=== PATIENT | female | born 2000 | race Caucasian/White ===

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

== ENCOUNTER 2018-05-18 02:16 | Emergency (ER) | payer BC ==
--- NOTE | 2018-05-18 02:49 | RAD ---
EXAM DESCRIPTION: Single view of the chest CLINICAL HISTORY: SOB COMPARISON: None. FINDINGS: Single frontal view of the chest. The cardiomediastinal silhouette has normal size and contour. No consolidation, pneumothorax, or pleural effusion. No displaced rib fractures identified. Leads overlie the chest. Low lung volumes. Upper abdominal soft tissues are unremarkable. IMPRESSION: 1. No acute pulmonary process identified. Electronically signed by: Robin Ozuna 05/18/2018 2:48 AM CDT
--- NOTE | 2018-05-18 03:42 | ED.PDOC ---
History of Present Illness - General Chief Complaint: Respiratory Problem Stated Complaint: shortness of breath Time Seen by Provider: 05/18/18 03:30 Source: patient, Vital Signs reviewed Additional Information: 17 YEAR OLD FEMALE PRESENTS WITH CHEST PAIN PALPITAIONS SHORTNESS OF BREATH DIZZINESS AT NIGHT FOR THE PAST 1 WEEK SHE STARTED TAKING HORMONE PILLS FOR THE 9 MONTH AMENORRHEA SHE HAS NO OTHER RISK FOR THROMBO-EMBOLISM - History of Present Illness Timing/Duration: 1 week Severity: mild Improving Factors: nothing Allergies/Adverse Reactions: Allergies NO KNOWN ALLERGY Allergy (Unverified 04/14/15 19:39) Home Medications: Ambulatory Orders Acetamin W/Cod #3 Tab [Tylenol #3 Tab] 1 ea PO Q4-6H PRN #20 tab 04/14/15 Review of Systems - Review of Systems Constitutional: States: no symptoms reported EENTM: States: no symptoms reported Respiratory: States: no symptoms reported Cardiology: States: no symptoms reported Gastrointestinal/Abdominal: States: no symptoms reported Genitourinary: States: no symptoms reported Musculoskeletal: States: no symptoms reported Skin: States: no symptoms reported Neurological: States: no symptoms reported Endocrine: States: no symptoms reported Hematologic/Lymphatic: States: no symptoms reported Past Medical History (General) - Patient Medical History Hx Asthma: Yes Hx Cardiac Disorders: No Hx Hypertension: No Hx Thyroid Disease: No Hx Diabetes: No Hx Gastroesophageal Reflux: Yes Hx Cancer: No Hx Hepatitis C: No Surgical History: no surgical history - Vaccination History Hx Influenza Vaccination: Yes Hx Pneumococcal Vaccination: Yes - Social History Hx Tobacco Use: No Hx Chewing Tobacco Use: No Hx Alcohol Use: No Hx Substance Use: No Hx Substance Use Treatment: No Hx Depression: No Hx Physical Abuse: No Hx Emotional Abuse: No Hx Suspected Abuse: No - Female History Patient is a Female of Child Bearing Age (10 -59 yrs old): Yes Patient : No Family Medical History - Family History Father Hx Family Diabetes: Yes Physical Exam - Physical Exam General Appearance: Alert, Anxious Eye Exam: bilateral normal Ears, Nose, Throat: hearing grossly normal, normal ENT inspection, normal pharynx, abnormal TM (R) Neck: non-tender, full range of motion, supple Respiratory: chest non-tender, lungs clear, normal breath sounds, no respiratory distress, no accessory muscle use Cardiovascular/Chest: normal peripheral pulses, regular rate, rhythm, no edema, no gallop, no JVD, no murmur Back Exam: normal inspection, no CVA tenderness, no vertebral tenderness Extremity: normal range of motion, non-tender, normal inspection Neurologic: corrections counselor II-XII nml as tested, no motor/sensory deficits, alert, normal mood/affect, oriented x 3 Progress - Results/Orders Results/Orders: Laboratory Tests 05/18/18 05/18/18 05/18/18 02:40 02:40 02:40 WBC 8.0 RBC 4.50 Hgb 13.4 Hct 39.2 MCV 87.1 MCH 29.9 MCHC 34.3 RDW 13.5 Plt Count 267 MPV 8.0 Absolute Neuts (auto) 4.80 Absolute Lymphs (auto) 2.50 Absolute Monos (auto) 0.50 Absolute Eos (auto) 0.10 Absolute Basos (auto) 0.00 Neutrophils % 60.4 Lymphocytes % 31.6 Monocytes % 6.9 Eosinophils % 0.7 L Basophils % 0.4 D-Dimer, Quantitative 0.69 H* Sodium 139 Potassium 3.7 Chloride 105 Carbon Dioxide 23 Anion Gap 14.7 BUN 13 Creatinine 0.73 BUN/Creatinine Ratio 17.8 Random Glucose 111 H Serum Osmolality 278.3 Calcium 9.3 Total Bilirubin 1.2 H AST 23 ALT 32 Alkaline Phosphatase 67 L Serum Total Protein 8.0 Albumin 4.3 Globulin 3.7 H Albumin/Globulin Ratio 1.2 Urine Color Urine Appearance Urine pH Ur Specific [place] Urine Protein Urine Glucose (UA) Urine Ketones Urine Blood Urine Nitrite Urine Bilirubin Urine Urobilinogen Ur Leukocyte Esterase Urine RBC Urine WBC Ur Epithelial Cells Amorphous Sediment Urine Bacteria 05/18/18 03:03 WBC RBC Hgb Hct MCV MCH MCHC RDW Plt Count MPV Absolute Neuts (auto) Absolute Lymphs (auto) Absolute Monos (auto) Absolute Eos (auto) Absolute Basos (auto) Neutrophils % Lymphocytes % Monocytes % Eosinophils % Basophils % D-Dimer, Quantitative Sodium Potassium Chloride Carbon Dioxide Anion Gap BUN Creatinine BUN/Creatinine Ratio Random Glucose Serum Osmolality Calcium Total Bilirubin AST ALT Alkaline Phosphatase Serum Total Protein Albumin Globulin Albumin/Globulin Ratio Urine Color Yellow Urine Appearance Cloudy Urine pH 5.5 Ur Specific [place] 1.025 Urine Protein Trace Urine Glucose (UA) Negative Urine Ketones 15 H Urine Blood Large H Urine Nitrite Negative Urine Bilirubin Negative Urine Urobilinogen 0.2 Ur Leukocyte Esterase Negative Urine RBC Tntc H Urine WBC 0 Ur Epithelial Cells 1-3 Amorphous Sediment 1+ Urine Bacteria 0 CT ANGIO OF THE CHEST NEG FOR PE Departure - Departure Clinical Impression: Adverse drug effect, Anxiety Time of Disposition: 05:55 Disposition: Discharge to Home or Self Care Departure Forms: ED Discharge - Pt. Copy, Patient Portal Self Enrollment Referrals: Arsenio San III, MD [Primary Care Provider] - 1-2 Weeks Home Medications: Ambulatory Orders Acetamin W/Cod #3 Tab [Tylenol #3 Tab] 1 ea PO Q4-6H PRN #20 tab 04/14/15
[2018-05-18] MEDS ORDERED: LORazepam 0.5 MG TAB PO ONE (03:43)
--- NOTE | 2018-05-18 05:49 | CT ---
EXAM DESCRIPTION: CTA Chest CLINICAL HISTORY: SOB COMPARISON: Chest radiograph same day TECHNIQUE: Axial CT images of the chest were acquired after the administration of intravenous contrast. Coronal and sagittal reconstructions were obtained. 3-D postprocessing was acquired at an independent workstation. This exam was performed according to our departmental dose-optimization program which includes use of Automated Exposure Control, adjustment of the mA and/or kV according to patient size and/or use of iterative reconstruction technique. FINDINGS: Neck base: Unremarkable. Mediastinum: Unremarkable. Lymph Nodes: No lymphadenopathy. Heart and pericardium: No right heart strain. Aorta: Unremarkable. Pulmonary Artery: No evidence of pulmonary embolism Central Airways: Patent. Pleura: No pneumothorax or pleural effusion. Lungs: No suspicious pulmonary nodules or masses. Upper abdomen: Unremarkable. Bones and soft tissues: No acute osseous or soft tissue abnormalities. IMPRESSION: No evidence of pulmonary embolism. Electronically signed by: Maxim Dean MD 05/18/2018 5:48 AM CDT
[2018-05-18 05:50] VITALS: TEMP 99.1
[2018-05-18 06:09] VITALS: BP 129/61; O2SAT 100
== END 2018-05-18 06:12 | disposition home or self-care (01) ==
LOC: ER 02:16
DX: F41.9 Anxiety disorder, unspecified (principal); T38.805A Adverse effect of unspecified hormones and synthetic substitutes, initial encounter; R07.9 Chest pain, unspecified; R06.02 Shortness of breath; J45.909 Unspecified asthma, uncomplicated; K21.9 Gastro-esophageal reflux disease without esophagitis

== ENCOUNTER → 2019-03-18 | Outpatient (CLI) | payer OTHER | LOC: LAB.O 11:03 | PROVIDERS: ATTEND Nurse Practitioner Family | DX: L03.011 Cellulitis of right finger (principal) ==

== ENCOUNTER 2019-03-22 17:21 | Emergency (ER) | payer OTHER ==
[2019-03-22 17:40] VITALS: O2SAT 100
--- NOTE | 2019-03-22 17:43 | ED.PDOC ---
History of Present Illness - General Chief Complaint: Neuro Symptoms/Deficits Stated Complaint: seizure; possible reaction to cipro Time Seen by Provider: 03/22/19 17:33 Source: family, EMS Exam Limitations: clinical condition - History of Present Illness Initial Comments: PT BROUGHT TO THE ED FOR WITNESSED SEIZURE WHILE AT WORK TODAY. PT DOES NOT HAVE A HISTORY OF SEIZURE ACCORDING TO FAMILY. PT WAS RECENTLY DIAGNOSED WITH MONONUCLEOSIS AND ALSO STARTED CIPRO TODAY FOR A WOUND INFECTION ON HER FINGER THAT WAS CULTURED 4 DAYS AGO AND GREW AEROMONAS HYDROPHILA. PT INJURED THE FINGER LAST WEEK WHILE AT [facility]. HPI AND ROS IS LIMITED DUE TO PTS MENTAL STATUS. PT REQUIRED MY IMMEDIATE ATTENTION UPON ARRIVAL TO THE ED. Timing/Duration: episodic Severity: moderate Associated Symptoms: seizures Allergies/Adverse Reactions: Allergies NO KNOWN ALLERGY Allergy (Unverified 04/14/15 19:39) Home Medications: Ambulatory Orders Ciprofloxacin [Cipro] 500 mg PO BID 03/22/19 Review of Systems - Review of Systems Constitutional: States: see HPI EENTM: States: see HPI Respiratory: States: see HPI Cardiology: States: see HPI Gastrointestinal/Abdominal: States: see HPI Genitourinary: States: see HPI Musculoskeletal: States: see HPI Skin: States: see HPI Neurological: States: see HPI Endocrine: States: see HPI Past Medical History (General) - Patient Medical History Hx Asthma: Yes Hx Cardiac Disorders: No Hx Hypertension: No Hx Thyroid Disease: No Hx Diabetes: No Hx Gastroesophageal Reflux: Yes Hx Cancer: No Hx Hepatitis C: No - Vaccination History Hx Influenza Vaccination: Yes Hx Pneumococcal Vaccination: Yes - Social History Hx Tobacco Use: No Hx Chewing Tobacco Use: No Hx Alcohol Use: No Hx Substance Use: No Hx Substance Use Treatment: No Hx Depression: No Hx Physical Abuse: No Hx Emotional Abuse: No Hx Suspected Abuse: No - Female History Patient : No Family Medical History - Family History Father Hx Family Diabetes: Yes Physical Exam - Physical Exam General Appearance: Lethargic, Obese, Well Groomed, Well Hydrated Eye Exam: bilateral normal ENT Exam: other - GAG REFLEX INTACT Neck: normal inspection Respiratory: lungs clear, normal breath sounds, no respiratory distress Cardiovascular/Chest: regular rate, rhythm, no murmur Gastrointestinal/Abdominal: soft, no organomegaly 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 PT SUFFERED A HEAD INJURY WITH BRIEF LOC AT THAT TIME ALONG WITH INJURING HER FINGER, HOWEVER PT DID NOT RECIEVE ANY MEDICAL ATTENTION AT THAT TIME. ACCORDING TO PTS MOTHER SHE HAD BEEN COMPLAINING OF ABDOMINAL PAIN, BACK PAIN, HEADACHE, AND NECK PAIN SINCE THE FALL. PTS MOTHER STATES THAT OTHER THAN BEING MORE TIRED THAN USUAL SECONDARY TO HAVING MONO, PT HAD BEEN BEHAVING NORMALLY. 03/22/19 17:58 PT HAS HAD 2 BRIEF EPISODES OF SEIZURE LIKE ACTIVITY WHILE IN THE ED CONSISTING OF 5-10 SECOND EPISODES OF TREMORS. NO TONIC CLONIC ACTIVITY OBSERVED. PT APPEARS TO BE MORE RESPONSIVE. WHEN ASKED IF SHE IS IN PAIN PT GESTURES TO RESPONDS BUT APPEARS UNABLE TO. PT OBSERVED CRYING. 03/22/19 19:02 PT ABLE TO COMMUNICATE THAT SHE NEEDED TO USE THE RESTROOM, HOWEVER STILL NOT TALKING. - Results/Orders Results/Orders: Laboratory Tests 03/22/19 03/22/19 03/22/19 17:50 17:50 17:50 WBC 6.4 RBC 4.39 Hgb 12.9 Hct 38.8 MCV 88.5 MCH 29.5 MCHC 33.3 RDW 13.1 Plt Count 235 MPV 8.1 Absolute Neuts (auto) 3.40 Absolute Lymphs (auto) 2.40 Absolute Monos (auto) 0.50 Absolute Eos (auto) 0.10 Absolute Basos (auto) 0.00 Neutrophils % 52.0 Lymphocytes % 37.9 Monocytes % 8.2 Eosinophils % 1.3 Basophils % 0.6 PT 9.8 INR 0.98 PTT (SP) 27.0 Sodium 138 Potassium 3.9 Chloride 105 Carbon Dioxide 24 Anion Gap 12.9 BUN 13 Creatinine 0.60 BUN/Creatinine Ratio 21.7 H Random Glucose 88 Serum Osmolality 275.2 Calcium 8.8 Total Bilirubin 1.4 H AST 21 ALT 20 Alkaline Phosphatase 75 Serum Total Protein 7.4 Albumin 4.2 Globulin 3.2 Albumin/Globulin Ratio 1.3 Serum HCG, Qual Salicylates < 4.0 Acetaminophen < 10.0 L Ethyl Alcohol 03/22/19 03/22/19 17:50 17:50 WBC RBC Hgb Hct MCV MCH MCHC RDW Plt Count MPV Absolute Neuts (auto) Absolute Lymphs (auto) Absolute Monos (auto) Absolute Eos (auto) Absolute Basos (auto) Neutrophils % Lymphocytes % Monocytes % Eosinophils % Basophils % PT INR PTT (SP) Sodium Potassium Chloride Carbon Dioxide Anion Gap BUN Creatinine BUN/Creatinine Ratio Random Glucose Serum Osmolality Calcium Total Bilirubin AST ALT Alkaline Phosphatase Serum Total Protein Albumin Globulin Albumin/Globulin Ratio Serum HCG, Qual Negative Salicylates Acetaminophen Ethyl Alcohol < 5.40 - EKG/XRAY/CT EKG: Sinus - @72BPM, NL INTERVALS, NL AXIS, no ST T wave changes, Unchanged from - 05/18/18 Departure - Departure Clinical Impression: Status epilepticus Time of Disposition: 19:07 Disposition: Transfer to Hospital Condition: Fair Departure Forms: ED Discharge - Pt. Copy, Patient Portal Self Enrollment Referrals: Arsenio San III, MD [Primary Care Provider] - 1-2 Weeks Home Medications: Ambulatory Orders Ciprofloxacin [Cipro] 500 mg PO BID 03/22/19 Transfer to Outside Facility - Transfer Information Accepting Provider:: DR. GOMEZ Accepting Facility: [facility] Reason for Transfer: required specialist not available - NEUROLOGY
[2019-03-22] MEDS: SODIUM CHLORIDE 0.9% 1000ML 1,000 ML IVS PRN (17:47)
[2019-03-22] MEDS: SODIUM CHLORIDE 0.9% (FLUSH) 10 ML SYG IV PRN (17:47)
[2019-03-22] MEDS ORDERED: levETIRAcetam INJ 100 MG/ML VIAL IVPB ONE (18:35)
[2019-03-22] MEDS ORDERED: SODIUM CHLORIDE 0.9% 100ML 100 ML IVPB ONE (18:36)
[2019-03-22] MEDS: levETIRAcetam INJ 1,000 MG in SODIUM CHLORIDE 0.9% 100ML 100 ML IVPB ONE (18:46)
--- NOTE | 2019-03-22 19:05 | CT ---
EXAM: CT Head Without Intravenous Contrast CLINICAL HISTORY: 18 years old and is Female; ams TECHNIQUE: Axial computed tomography images of the head/brain without intravenous contrast. Sagittal and coronal reformatted images were created and reviewed. This CT exam was performed using one or more of the following dose reduction techniques: automated exposure control, adjustment of the mA and/or kV according to patient size, and/or use of iterative reconstruction technique. COMPARISON: No relevant prior studies available. FINDINGS: Limitations: None. Brain: Unremarkable. No hemorrhage. No significant white matter disease. No edema. Ventricles: Unremarkable. No ventriculomegaly. Bones/joints: Unremarkable. No acute fracture. Soft tissues: Unremarkable. Sinuses: Unremarkable as visualized. No acute sinusitis. Mastoid air cells: Unremarkable as visualized. No mastoid effusion. IMPRESSION: No acute findings. Electronically signed by: Alix Navas MD 03/22/2019 7:03 PM CDT
[2019-03-22 19:19] VITALS: BP 139/85; TEMP 99.4
[2019-03-22] MEDS: ACETAMINOPHEN 325 MG TAB PO ONE (19:40)
== END 2019-03-22 19:50 | disposition short-term general hospital (02) ==
LOC: ER 17:21
DX: G40.901 Epilepsy, unspecified, not intractable, with status epilepticus (principal); J45.909 Unspecified asthma, uncomplicated; K21.9 Gastro-esophageal reflux disease without esophagitis
CPT/HCPCS: 36415; 70450; 80053; 80307; 80320; 80329; 81001; 84703; 85025; 85610; 85730; 87040; 93005; J7030; J7050

== ENCOUNTER → 2019-05-09 | Outpatient (CLI) | payer OTHER ==
--- NOTE | 2019-05-09 13:06 | RAD ---
EXAM DESCRIPTION: Hand,Right 3 Views CLINICAL HISTORY: Pain. COMPARISON: 04/28/2019. TECHNIQUE: AP, LATERAL, AND OBLIQUE FINDINGS/IMPRESSION: Three-view right hand redemonstrate a healing right fifth mid metacarpal fracture (with slight interval fracture margin sclerosis) with persistent fracture lucency and mild dorsal apex angulation. Electronically signed by: Dwain Diggs DO 05/09/2019 8:27 AM CDT
== END ==
LOC: RAD 07:47
PROVIDERS: ATTEND Orthopaedic Surgery
DX: S62.396A Other fracture of fifth metacarpal bone, right hand, initial encounter for closed fracture (principal)

== ENCOUNTER → 2019-05-26 | Outpatient (CLI) | payer OTHER ==
--- NOTE | 2019-05-26 09:05 | RAD ---
EXAM DESCRIPTION: Hand,Right 3 Views CLINICAL HISTORY: S62.326D hand injury. COMPARISON: May 09, 2019 IMPRESSION: 3 views of the right hand again demonstrate mostly transverse fracture of the mid fifth metacarpal with mild volar angulation of the distal fracture fragment unchanged from previous exam. Mild indistinctness of the fracture margins with mild periosteal reaction suggests subacute injury and early interval healing. No new fracture or dislocation. Electronically signed by: Baron Pretty MD 05/26/2019 9:03 AM CDT
== END ==
LOC: RAD 08:13
PROVIDERS: ATTEND Orthopaedic Surgery
DX: S62.326D Displaced fracture of shaft of fifth metacarpal bone, right hand, subsequent encounter for fracture with routine healing (principal)

== ENCOUNTER 2019-10-04 15:38 | Emergency (ER) | payer OTHER ==
[2019-10-04] MEDS ORDERED: ACETAMINOPHEN W/COD #3 TAB 1 EA TAB PO ONE (16:09)
[2019-10-04] MEDS ORDERED: SODIUM CHLORIDE 0.9% 1000ML 1,000 ML IVS ONE (16:09)
--- NOTE | 2019-10-04 16:14 | ED.PDOC ---
History of Present Illness - General Chief Complaint: Neuro Symptoms/Deficits Stated Complaint: seizure Time Seen by Provider: 10/04/19 16:06 Additional Information: The patient is a 19-year-old female who presents to the ED with chief complaint of seizure prior to arrival. Patient has known seizure disorder beginning in March. Patient is seeing a neurologist in [place], Dr. Ruth, who initially had patient on Keppra. Patient had breakthrough seizures on Keppra and that medication was recently stopped and patient was changed to oxtellar. Patient was at work today and the next thing she remembers is being on the ground with people around her telling her that she had a seizure. Patient denies any injury but does indicate that she has lateral neck muscle stiffness but no posterior neck pain. Patient indicates she did not injure herself and her seizure. There is no loss of bowel or bladder function. patient indicates that she is compliant with her medications. - History of Present Illness Allergies/Adverse Reactions: Allergies NO KNOWN ALLERGY Allergy (Unverified 04/14/15 19:39) Home Medications: Ambulatory Orders Oxcarbazepine [Oxtellar Xr] 150 mg PO DAILY 10/04/19 Sprintec 28 0.25-35 mg-Mcg 1 tablet PO DAILY 10/04/19 Review of Systems - Review of Systems Constitutional: States: no symptoms reported. Denies: chills, fever EENTM: States: no symptoms reported Respiratory: States: no symptoms reported. Denies: cough, short of breath Cardiology: States: no symptoms reported. Denies: chest pain, palpitations Gastrointestinal/Abdominal: States: no symptoms reported. Denies: abdominal pain, nausea, vomiting Genitourinary: Denies: dysuria Musculoskeletal: States: see HPI Skin: Denies: rash Neurological: Denies: anxiety, emotional problems, headache, numbness, paresthesia, weakness Endocrine: States: no symptoms reported Hematologic/Lymphatic: States: no symptoms reported All other Systems: Reviewed and Negative Past Medical History (General) - Patient Medical History Hx Seizures: Yes Hx Asthma: Yes Hx Cardiac Disorders: No Hx Hypertension: No Hx Thyroid Disease: No Hx Diabetes: No Hx Gastroesophageal Reflux: Yes Hx Cancer: No Hx Hepatitis C: No Surgical History: no surgical history - Vaccination History Hx Influenza Vaccination: Yes Hx Pneumococcal Vaccination: Yes Immunizations Up to Date: Yes - Social History Hx Tobacco Use: No Hx Chewing Tobacco Use: No Hx Alcohol Use: No Hx Substance Use: No Hx Substance Use Treatment: No Hx Depression: No Hx Physical Abuse: No Hx Emotional Abuse: No Hx Suspected Abuse: No - Female History Patient is a Female of Child Bearing Age (10 -59 yrs old): Yes Patient : No - Triage Comment ED Triage Comment: pt mentation altered. Family Medical History - Family History Father Hx Family Diabetes: Yes Physical Exam - Physical Exam General Appearance: Alert, Comfortable, No apparent distress, Obese ENT Exam: normal ENT inspection, pharynx normal Neck: other - negative cervical vertebral tenderness to palpation. There is mild bilateral paravertebral tenderness to palpation. Respiratory: normal breath sounds, no respiratory distress Gastrointestinal/Abdominal: normal bowel sounds, non tender, soft Back Exam: normal inspection, no CVA tenderness Extremities Exam: non-tender, normal range of motion Mental Status: alert, oriented x 3 coil strapper Exam: normal hearing, normal speech Coordination/Gait: normal gait Motor/Sensory: no motor deficit, no sensory deficit Skin Exam: normal color Progress - Progress Progress: 10/04/19 16:17 Differential diagnosis includes but is not limited to electrolyte disorder, medication noncompliance, breakthrough seizure, infection. 10/04/19 16:20 EKG read: NSR, rate 74 nl axis, nl QRS, nl ST segments, nl T waves. Negative STEMI. EKG read by David Nolan MD. 10/04/19 17:51 Patient's laboratory testing today is unremarkable and she remains asymptomatic and fully oriented in the ED. I have called her neurologist office, Dr. Ruth, but on this [facility] messages go straight to voicemail and there is no answering service. I've advised patient to continue with her present dose of antiseizure medication and call her neurologist after the holidays to make a follow-up appointment and to optimize her medication management. Vital signs stable, patient NAD and looks clinically well, and I believe is safe for discharge with outpatient follow-up. Follow-up instructions, discharge instructions and return to ED precautions discussed with patient. Patient voices understanding and willingness to comply with instructions. All laboratory and radiographic results have been discussed with the patient, and all questions answered. Patient is happy with plan. Departure - Departure Clinical Impression: Breakthrough seizure Time of Disposition: 17:54 Disposition: Discharge to Home or Self Care Condition: Good Departure Forms: ED Discharge - Pt. Copy, Patient Portal Self Enrollment Instructions: Seizures, Adult (DC) Referrals: Arsenio San III, MD [Primary Care Provider] - 1-5 Days Home Medications: Ambulatory Orders Oxcarbazepine [Oxtellar Xr] 150 mg PO DAILY 10/04/19 Sprintec 28 0.25-35 mg-Mcg 1 tablet PO DAILY 10/04/19
[2019-10-04] MEDS ORDERED: traMADol HCL 50 MG TAB PO ONE (18:07)
[2019-10-04] MEDS ORDERED: traMADol HCL 50 MG TAB ONE (18:08)
[2019-10-04 18:15] VITALS: BP 132/61; TEMP 98.7; O2SAT 99
== END 2019-10-04 18:15 | disposition home or self-care (01) ==
LOC: ER 15:38
DX: G40.909 Epilepsy, unspecified, not intractable, without status epilepticus (principal); J45.909 Unspecified asthma, uncomplicated; K21.9 Gastro-esophageal reflux disease without esophagitis; Z79.899 Other long term (current) drug therapy

== ENCOUNTER → 2020-12-03 | Outpatient (CLI) | payer BC | LOC: GMAL 17:34 | PROVIDERS: ATTEND Family Medicine | DX: D51.0 Vitamin B12 deficiency anemia due to intrinsic factor deficiency (principal); N92.5 Other specified irregular menstruation; R53.83 Other fatigue; E55.9 Vitamin D deficiency, unspecified ==

== ENCOUNTER → 2020-12-12 | Outpatient (CLI) | payer BC | LOC: RAD 13:49 | PROVIDERS: ATTEND Family Medicine | DX: R00.2 Palpitations (principal) ==